=== PATIENT | male | born 1980 | race Caucasian/White ===

== ENCOUNTER 2022-06-24 00:41 | Emergency (ER) | payer SELFPAY ==
[~2022-06-24] VITALS: Ht 177.8 cm; Wt 77.1 kg
[2022-06-24 01:32] VITALS: BP 141/85
[2022-06-24] MEDS ORDERED: SULF1TAB48 PO (01:47)
[2022-06-24] MEDS ORDERED: NABU-141 PO (01:47)
[2022-06-24] MEDS ORDERED: CEPH500C2 PO (01:47)
[2022-06-24] MEDS ORDERED: KETOROLAC TROMETHAMINE INJ 60 MG/2 ML VIAL IM ONE ×2 (01:51→02:00)
[2022-06-24] MEDS ORDERED: CEPHALEXIN MONOHYDRATE 500 MG CAPSULE PO ONE ×2 (01:51→02:00)
[2022-06-24] MEDS ORDERED: SULFAMETH/TRIMETH 800/160 MG 1 UDTAB TABLET ONE (01:51)
[2022-06-24] MEDS ORDERED: SULFAMETH/TRIMETH 800/160 MG 1 UDTAB TABLET PO ONE (02:00)
== END 2022-06-24 02:08 | disposition home or self-care (01) ==
LOC: ER 00:43
DX: L03.113 Cellulitis of right upper limb (principal)
CPT/HCPCS: 99283; 96372; J1885